=== PATIENT | male | born 1990 | race Caucasian/White ===

== ENCOUNTER 2019-04-28 21:45 | Emergency (ER) | payer OTHER, SELFPAY ==
[2019-04-28] MEDS ORDERED: FENTANYL CITR 100 MCG/2 ML ONE (22:44)
[2019-04-28] MEDS ORDERED: NA CHLORIDE 0.9% 2,000 ML ONE (22:44)
[2019-04-28] MEDS ORDERED: ACETAMINOPHEN 500 MG TAB ONE (22:44)
[2019-04-28] MEDS ORDERED: NA CHLORIDE 0.9% 500 ML ONE (22:45)
[2019-04-28] MEDS ORDERED: ONDANSETRON 4 MG/2 ML VIAL ONE (23:25)
[2019-04-28 23:31] LABS: Protime INR 1.16
[2019-04-28 23:33] LABS: Absolute Lymphocytes (CBC) 0.7 K/uL (0.7-4.9); Basophils % 1.1 % (0-1.3); Hematocrit 41.9 % (39.6-49.0); Lymphocytes % 9.1 % (15.3-44.8); MPV 9.1 fL (7.6-11.3); RBC Red Blood Cell Count 4.61 M/uL (4.33-5.43)
[2019-04-28 23:42] LABS: Albumin 4.3 g/dL (3.4-5.0); Bilirubin Direct 0.1 mg/dL (0-0.2); Bilirubin Total 0.3 mg/dL (0.2-1.0); Potassium 3.8 mmol/L (3.5-5.1)
[2019-04-28 23:42] LABS: Urine Blood NEGATIVE (NEG); Urine Glucose NEGATIVE (NEG); Urine Protein NEGATIVE (NEG); Urine Specific Gravity 1.015 (1.005-1.030); Urine pH 5.5 (5.0-7.0)
--- NOTE | 2019-04-29 02:21 | ER ---
Nurse's Notes [facility] Name: Kwabena Berry Age: 28 yrs Sex: Male : 1990 Arrival Date: 04/28/2019 Time: 21:52 Bed 17 Private MD: Diagnosis: Fever, unspecified;Myalgia Presentation: 04/28 22:04 Presenting complaint: Patient states: left flank pain X1 day. fever at 1800 tonight ak1 101.5 no medications taken. pt denies N/V, denies urinary s/s. Presenting complaint:. Transition of care: patient was not received from another setting of care. Onset of symptoms is unknown. Risk Assessment: Do you want to hurt yourself or someone else? Patient reports no desire to harm self or others. Initial Sepsis Screen: Does the patient meet any 2 criteria? Temp <36.0*C (96.8*F)) or > 38.3*C (100.9*F). Does the patient have a suspected source of infection? Yes:. Care prior to arrival: None. 22:04 Method Of Arrival: Ambulatory ak1 22:04 Acuity: DAINA 3 ak1 Triage Assessment: 22:06 General: Appears in no apparent distress. Behavior is calm, cooperative. ak1 22:09 General: Appears in no apparent distress. uncomfortable, Behavior is calm, cooperative, cc3 appropriate for age. Pain: Complains of pain in left mid back. EENT: No signs and/or symptoms were reported regarding the EENT system. Neuro: Level of Consciousness is awake, alert, obeys commands, Oriented to person, place, time, situation, Appropriate for age. Cardiovascular: Heart tones S1 S2 present Capillary refill < 3 seconds Patient's skin is warm and dry. Rhythm is sinus tachycardia. Respiratory: Airway is patent Respiratory effort is even, unlabored, Respiratory pattern is regular, symmetrical. GI: Abdomen is round non-distended. : No signs and/or symptoms were reported regarding the genitourinary system. Derm: Skin is intact, is healthy with good turgor, Skin is pink, warm \T\ dry. normal. Musculoskeletal: Circulation, motion, and sensation intact. Range of motion: intact in all extremities. Historical: - Allergies: 22:06 diphenhydramine HCl; ak1 - Home Meds: 22:06 None [Active]; ak1 - PMHx: 22:06 None; ak1 - PSHx: 22:06 None; ak1 - Immunization history:: Adult Immunizations up to date. - Social history:: Smoking status: Patient uses tobacco products, smokes one pack cigarettes per day. - Ebola Screening: : No symptoms or risks identified at this time. Screenin:06 Abuse screen: Denies threats or abuse. Denies injuries from another. Nutritional ak1 screening: No deficits noted. Tuberculosis screening: No symptoms or risk factors identified. Fall Risk None identified. Assessment: 22:09 General: see triage assessment. cc3 23:45 Reassessment: Patient appears in no apparent distress at this time. Patient and/or cc3 family updated on plan of care and expected duration. Pain level reassessed. Patient is alert, oriented x 3, equal unlabored respirations, skin warm/dry/pink. Patient taken by termite control technician to their department by wheelchair. 04/29 00:20 Reassessment: Patient appears in no apparent distress at this time. Patient and/or cc3 family updated on plan of care and expected duration. Pain level reassessed. Patient is alert, oriented x 3, equal unlabored respirations, skin warm/dry/pink. Patient came back from CT scan department, awaiting result. 01:45 Reassessment: Patient appears in no apparent distress at this time. Patient and/or cc3 family updated on plan of care and expected duration. Pain level reassessed. Patient is alert, oriented x 3, equal unlabored respirations, skin warm/dry/pink. Repeat lactate taken by geoscience technicianlolis Blanco and sent to laboratory, laboratory staff Susannah lassiter. 02:35 Reassessment: Patient appears in no apparent distress at this time. Patient and/or cc3 family updated on plan of care and expected duration. Pain level reassessed. Patient is alert, oriented x 3, equal unlabored respirations, skin warm/dry/pink. ROSETTA Peña discharged the patient home, no prescription given. IV cannula removed and patient left ER vitally stable and ambulatory. NO valuables left in the patient's room. Patient denies pain at this time. Patient states feeling better. Patient states symptoms have improved. Vital Signs: 04/28 22:04 BP 130 / 80; Pulse 124; Resp 18; Temp 102.(O); Pulse Ox 98% on R/A; Weight 81.65 kg ak1 (R); Height 5 ft. 10 in. (177.80 cm) (R); Pain 10/10; 23:45 BP 114 / 71; Pulse 105; Resp 20; Temp 99.2(O); Pulse Ox 100% on R/A; jb5 04/29 00:30 BP 136 / 65; Pulse 93; Resp 20 S; Pulse Ox 100% on R/A; Pain 0/10; cc3 01:46 BP 114 / 74; Pulse 91; Resp 15 S; Temp 99.2(O); Pulse Ox 99% on R/A; Pain 0/10; cc3 02:15 BP 103 / 76; Pulse 89; Resp 16 S; Pulse Ox 99% on R/A; Pain 0/10; cc3 04/28 22:04 Body Mass Index 25.83 (81.65 kg, 177.80 cm) ak1 ED Course: 04/28 21:52 Patient arrived in ED. cl3 22:05 Triage completed. ak1 22:06 Arm band placed on Patient placed in an exam room, Patient notified of wait time. ak1 22:06 Patient has correct armband on for positive identification. ak1 22:09 Cari Cardona is Primary Nurse. cc3 22:16 Eduard Peña PA is PHCP. jr8 22:16 Meng Romero MD is Attending Physician. jr8 23:05 Inserted saline lock: 20 gauge in right antecubital area, using aseptic technique. cc3 Blood collected. 23:40 Urine Microscopic Only Sent. jb5 23:44 Notified Nurse Practitioner and/or Physician Partner Cco of a critical lab result(s), bb lactate 2.5 Eduard SARGENT notified. 23:52 X-ray completed. Portable x-ray completed in exam room. Patient tolerated procedure kw well. 23:55 Chest Single View XRAY In Process Unspecified. EDMS 04/29 00:49 CT Abd/Pelvis - IV Contrast Only In Process Unspecified. EDMS 02:35 No provider procedures requiring assistance completed. IV discontinued, intact, cc3 bleeding controlled, No redness/swelling at site. Pressure dressing applied. Administered Medications: 04/28 22:40 Drug: Tylenol 1000 mg Route: PO; cc3 23:40 Follow up: Response: No adverse reaction; Temperature is decreased cc3 23:05 Drug: NS 0.9% (30 ml/kg) 30 ml/kg Route: IV; Rate: bolus; Site: right antecubital; cc3 04/29 01:20 Follow up: Response: No adverse reaction; IV Status: Completed infusion; IV Intake: cc3 2449.5ml 04/28 23:10 Drug: fentaNYL (PF) 50 mcg {Note: RASS 0.} Route: IVP; Site: right antecubital; cc3 23:40 Follow up: Response: No adverse reaction; Pain is decreased; RASS: Alert and Calm (0) cc3 23:15 Drug: Zofran 4 mg Route: IVP; Site: right antecubital; cc3 23:40 Follow up: Response: No adverse reaction; Nausea is decreased cc3 04/29 02:20 Drug: TORadol 30 mg Route: IVP; Site: right antecubital; cc3 02:35 Follow up: Response: No adverse reaction; Pain is decreased cc3 Point of Care Testing: Blood Glucose: 04/28 22:50 Blood Glucose: 99 mg/dL; cc3 Ranges: Intake: 04/29 01:20 IV: 2450ml; Total: 2450ml. cc3 Outcome: 02:19 Discharge ordered by MD. savage 02:35 Discharged to home ambulatory, with family. cc3 02:35 Condition: stable 02:35 Discharge instructions given to patient, family, Instructed on discharge instructions, follow up and referral plans. Demonstrated understanding of instructions, follow-up care. 02:40 Patient left the ED. cc3 Signatures: Dispatcher [employer] EDMS Leslie Engel RN RN Brianna Sauceda Josh, PA PA jr8 Almaz Sam RN RN akMarlene Casey jb5 Cari Cardona cc3 Ramona Pugh cl3 Corrections: (The following items were deleted from the chart) 01:50 01:46 BP 114 / 74; Pulse 91bpm; Resp 15bpm; Spontaneous; Pulse Ox 99% RA; Temp 99.2F cc3 Oral; cc3
--- NOTE | 2019-04-29 02:22 | EDPHYS ---
Physician Documentation [facility] Name: Kwabena Berry Age: 28 yrs Sex: Male : 1990 Arrival Date: 04/28/2019 Time: 21:52 Bed 17 Private MD: ED Physician Meng Romero HPI: 04/28 22:31 This 28 yrs old Male presents to ER via Ambulatory with complaints of Fever, jr8 Back Pain. 22:31 The patient reports fever, that was measured at 102 degrees Fahrenheit. Onset: The jr8 symptoms/episode began/occurred 2 day(s) ago. Modifying factors: there are no obvious modifying factors. Associated signs and symptoms: Pertinent positives: backache, Pertinent negatives: abdominal pain, arthralgias, chest pain, chills, cough, diarrhea, headache, hemoptysis, nausea, sinus congestion, sinus drainage, sore throat. Severity of symptoms: At their worst the symptoms were moderate. The patient has not experienced similar symptoms in the past. The patient has not recently seen a physician. Pt reports onset of pain to left mid back area on Sunday while at home. Noticed fever today. Denies any urinary or URI symptoms. Historical: - Allergies: 22:06 diphenhydramine HCl; ak1 - Home Meds: 22:06 None [Active]; ak1 - PMHx: 22:06 None; ak1 - PSHx: 22:06 None; ak1 - Immunization history:: Adult Immunizations up to date. - Social history:: Smoking status: Patient uses tobacco products, smokes one pack cigarettes per day. - Ebola Screening: : No symptoms or risks identified at this time. ROS: 22:31 Constitutional: Negative for fever, chills, and weight loss, Eyes: Negative for injury, jr8 pain, redness, and discharge, ENT: Negative for injury, pain, and discharge, Neck: Negative for injury, pain, and swelling, Cardiovascular: Negative for chest pain, palpitations, and edema, Respiratory: Negative for shortness of breath, cough, wheezing, and pleuritic chest pain, Abdomen/GI: Negative for abdominal pain, nausea, vomiting, diarrhea, and constipation, : Negative for injury, bleeding, discharge, and swelling, MS/Extremity: Negative for injury and deformity, Neuro: Negative for headache, weakness, numbness, tingling, and seizure. 22:31 Back: Positive for pain at rest, pain with movement, of the left mid back. jr8 Exam: 22:31 Constitutional: This is a well developed, well nourished patient who is awake, alert, jr8 and in no acute distress. Head/Face: Normocephalic, atraumatic. Eyes: Pupils equal round and reactive to light, extra-ocular motions intact. Lids and lashes normal. Conjunctiva and sclera are non-icteric and not injected. Cornea within normal limits. Periorbital areas with no swelling, redness, or edema. ENT: Nares patent. No nasal discharge, no septal abnormalities noted. Tympanic membranes are normal and external auditory canals are clear. Oropharynx with no redness, swelling, or masses, exudates, or evidence of obstruction, uvula midline. Mucous membranes moist. Neck: Trachea midline, no thyromegaly or masses palpated, and no cervical lymphadenopathy. Supple, full range of motion without nuchal rigidity, or vertebral point tenderness. No Meningismus. Chest/axilla: Normal chest wall appearance and motion. Nontender with no deformity. No lesions are appreciated. Cardiovascular: Regular rate and rhythm with a normal S1 and S2. No gallops, murmurs, or rubs. Normal PMI, no JVD. No pulse deficits. Respiratory: Lungs have equal breath sounds bilaterally, clear to auscultation and percussion. No rales, rhonchi or wheezes noted. No increased work of breathing, no retractions or nasal flaring. Abdomen/GI: Soft, non-tender, with normal bowel sounds. No distension or tympany. No guarding or rebound. No evidence of tenderness throughout. Back: No spinal tenderness. No costovertebral tenderness. Full range of motion. MS/ Extremity: Pulses equal, no cyanosis. Neurovascular intact. Full, normal range of motion. Vital Signs: 22:04 BP 130 / 80; Pulse 124; Resp 18; Temp 102.(O); Pulse Ox 98% on R/A; Weight 81.65 kg ak1 (R); Height 5 ft. 10 in. (177.80 cm) (R); Pain 10/10; 23:45 BP 114 / 71; Pulse 105; Resp 20; Temp 99.2(O); Pulse Ox 100% on R/A; jb5 04/29 00:30 BP 136 / 65; Pulse 93; Resp 20 S; Pulse Ox 100% on R/A; Pain 0/10; cc3 01:46 BP 114 / 74; Pulse 91; Resp 15 S; Temp 99.2(O); Pulse Ox 99% on R/A; Pain 0/10; cc3 02:15 BP 103 / 76; Pulse 89; Resp 16 S; Pulse Ox 99% on R/A; Pain 0/10; cc3 04/28 22:04 Body Mass Index 25.83 (81.65 kg, 177.80 cm) ak1 MDM: 04/28 22:31 Patient medically screened. jr8 04/29 02:15 Differential diagnosis: viral Infection, bacterial infection, pneumonia UTI, jr8 meningitis, myositis, pyelonephritis, renal stone with obstruction, sepsis, colitis, diverticulitis, cystitis. Data reviewed: vital signs, nurses notes, lab test result(s), radiologic studies, CT scan, plain films. Data interpreted: Pulse oximetry: on room air is 99 %. Interpretation: normal. Counseling: I had a detailed discussion with the patient and/or guardian regarding: the historical points, exam findings, and any diagnostic results supporting the discharge/admit diagnosis, lab results, radiology results, the need for outpatient follow up, a family practitioner, to return to the emergency department if symptoms worsen or persist or if there are any questions or concerns that arise at home. Response to treatment: the patient's symptoms have markedly improved after treatment, patient is well hydrated. ED course: Patient feeling better. Second lactate normal. No other acute findings on lab work, CXR, or CT. Patient has baseline elevation in LFT's which is known to him. No other acute findings on physical exam to explain the fever and left sided back pain. Recommended rest and close f/u with PCP. If other symptoms were to occur or he were to worsen, to come back immediately. Patient good with this plan . 04/28 22:32 Order name: Basic Metabolic Panel; Complete Time: 23:44 jr8 04/28 22:32 Order name: Blood Culture Adult (2) jr8 04/28 22:32 Order name: CBC with Diff; Complete Time: 23:41 jr8 04/28 22:32 Order name: CPK; Complete Time: 23:44 [facility] 04/28 22:32 Order name: Lactate; Complete Time: 23:56 [facility] 04/28 22:32 Order name: LFT's; Complete Time: 23:44 [facility] 04/28 22:32 Order name: Lipase; Complete Time: 23:44 [facility] 04/28 22:32 Order name: Procalcitonin; Complete Time: 00:18 [facility] 04/28 22:32 Order name: Protime (+inr); Complete Time: 23:41 [facility] 04/28 22:32 Order name: Ptt, Activated; Complete Time: 23:41 [facility] 04/28 22:32 Order name: Chest Single View XRAY [facility] 04/28 23:37 Order name: Urine Dipstick--Ancillary (enter results); Complete Time: 23:44 mo 04/29 02:08 Order name: Lactate Sepsis 2 HR Follow-up; Complete Time: 02:15 EDMS 04/28 22:32 Order name: Accucheck; Complete Time: 23:29 [facility] 04/28 22:32 Order name: Cardiac monitoring; Complete Time: 22:59 [facility] 04/28 22:32 Order name: EKG - Nurse/Tech; Complete Time: 23:00 [facility] 04/28 22:32 Order name: IV Saline Lock - Large Bore; Complete Time: 23:30 [facility] 04/28 22:32 Order name: Labs collected and sent; Complete Time: 23:30 [facility] 04/28 22:32 Order name: O2 Per Protocol; Complete Time: 22:38 [facility] 04/28 22:32 Order name: O2 Sat Monitoring; Complete Time: 22:38 [facility] 04/28 22:32 Order name: Urine Dipstick-Ancillary (obtain specimen); Complete Time: 23:47 [facility] 04/28 23:41 Order name: CT Abd/Pelvis - IV Contrast Only [facility] Administered Medications: 04/28 22:40 Drug: Tylenol 1000 mg Route: PO; cc3 23:40 Follow up: Response: No adverse reaction; Temperature is decreased cc3 23:05 Drug: NS 0.9% (30 ml/kg) 30 ml/kg Route: IV; Rate: bolus; Site: right antecubital; cc3 04/29 01:20 Follow up: Response: No adverse reaction; IV Status: Completed infusion; IV Intake: cc3 2449.5ml 04/28 23:10 Drug: fentaNYL (PF) 50 mcg {Note: RASS 0.} Route: IVP; Site: right antecubital; cc3 23:40 Follow up: Response: No adverse reaction; Pain is decreased; RASS: Alert and Calm (0) cc3 23:15 Drug: Zofran 4 mg Route: IVP; Site: right antecubital; cc3 23:40 Follow up: Response: No adverse reaction; Nausea is decreased 3 04/29 02:20 Drug: TORadol 30 mg Route: IVP; Site: right antecubital; cc3 02:35 Follow up: Response: No adverse reaction; Pain is decreased cc3 Point of Care Testing: Blood Glucose: 04/28 22:50 Blood Glucose: 99 mg/dL; cc3 Ranges: Critical Glucose Levels:Adult <50 mg/dl or >400 mg/dl <40 mg/dl or >180 mg/dl Disposition: 04/29 07:51 Co-signature as Attending Physician, Meng Romero MD I agree with the assessment and 4 plan of care. Disposition: 04/29/19 02:19 Discharged to Home. Impression: Fever, unspecified, Myalgia. - Condition is Stable. - Discharge Instructions: Fever, Adult, Muscle Pain, Adult. - Work release form, Medication Reconciliation Form, Thank You Letter, Antibiotic Education, Prescription Opioid Use, Family Work Release form. - Follow up: Private Physician; When: 1 - 2 days; Reason: Recheck today's complaints, Continuance of care, Re-evaluation by your physician. - Problem is new. - Symptoms have improved. - Notes: Continue to Push fluids at home Rest Ibuprofen and Tylenol for pain and fevers Signatures: Dispatcher [employer] EDMS Eduard Peña PA PA jr8 Almaz Sam RN RN [email or web address] Mneg Romero MD MD tw4 Cari Cardona cc3 Corrections: (The following items were deleted from the chart) 02:40 02:19 04/29/2019 02:19 Discharged to Home. Impression: Fever, unspecified; Myalgia. cc3 Condition is Stable. Forms are Medication Reconciliation Form, Thank You Letter, Antibiotic Education, Prescription Opioid Use. Follow up: Private Physician; When: 1 - 2 days; Reason: Recheck today's complaints, Continuance of care, Re-evaluation by your physician. Problem is new. Symptoms have improved. jr8
[2019-04-29] MEDS ORDERED: KETOROLAC 30 MG/ML INJ ONE (02:24)
[2019-04-29 03:10] VITALS: TEMP 99.2
[2019-04-29 03:15] VITALS: BP 114/74; O2SAT 99
--- NOTE | 2019-04-29 08:16 | RAD REPORT ---
EXAM DESCRIPTION: RAD - Chest Single View - 04/28/2019 11:54 pm CLINICAL HISTORY: FEVER Chest pain. COMPARISON: No comparisons FINDINGS: Portable technique limits examination quality. The lungs are grossly clear. The heart is normal in size. No displaced fractures. IMPRESSION: No acute intrathoracic process suspected.
--- NOTE | 2019-04-29 09:49 | RAD REPORT ---
EXAM DESCRIPTION: CT Abdomen and Pelvis With Intravenous Contrast CLINICAL HISTORY: The patient is 28 years old and is Male; left sided back pain; Fever TECHNIQUE: Axial computed tomography images of the abdomen and pelvis with intravenous contrast. S agittal and coronal reformatted images were created and reviewed. This CT exam was performed using one or more of the following dose reduction techniques: automated exposure control, adjustment of t he mA and/or kV according to patient size, and/or use of iterative reconstruction technique. COMPARISON: None. FINDINGS: LUNG BASES: Bibasilar dependent subsegmental atelectasis. No focal consolidation, pleur al effusion or pneumothorax. ABDOMEN: LIVER: Diffuse heterogeneity of the liver parenchyma on arterial phase. No ductal dilatation or re traction. GALLBLADDER AND BILE DUCTS: Prior cholecystectomy. No ductal dilation. PANCREAS: Unremarkable. No mass. No ductal dilation. SPLEEN: Unremarkable. No splenomegaly. ADRENALS: Unremarkable. No mass. KIDNEYS AND URETERS: Unremarkable. No solid mass. No hydronephrosis. STOMACH AND BOWEL: Unremarkable. No obstruction. No mucosal thickening. PELVIS: APPENDIX: The appendix is seen and is within normal limits. BLADDER: Bladder is decompressed. REPRODUCTIVE: Unremarkable as visualized. ABDOMEN and PELVIS: INTRAPERITONEAL SPACE: Unremarkable. No free air. No significant fluid collection. BONES/JOINTS: No acute fracture. No dislocation. SOFT TISSUES: Unremarkable. VASCULATURE: See above. LYMPH NODES: Unremarkable. No enlarged lymph nodes. IMPRESSION: 1. No acute abdominal or pelvic abnormality. 2. Heterogeneity of liver parenchyma on arterial phase most suggestive of transient hepatic attenua tion differences. Electronically signed by: Nick Dubois DO 04/29/2019 12:37 AM CDT Due to temporary technical issues with the PACS/Fluency reporting system, reports are being signed by the in house radiologist as a courtesy to ensure prompt reporting. The interpreting radiologist is f brandonly responsible for the content of the report.
--- NOTE | 2019-04-29 11:34 | EKG ---
Test Date: 2019-04-28 Test Time: 22:55:04 [employer] Manager: LELE MEASUREMENT RESULTS: Intervals: Rate: 107 [place]: 158 QRSD: 82 QT: 292 QTc: 389 [place]: P: 39 [place]: 158 QRS: 62 T: 36 INTERPRETIVE STATEMENTS: Sinus tachycardia Otherwise normal ECG No previous ECG available for comparison Electronically Signed On 04-29-19 11:33:36 CDT by Neeraj Huffman
== END 2019-04-29 02:40 | disposition home or self-care (01) ==
LOC: ER 21:45
DX: M79.10 Myalgia, unspecified site (principal); F17.210 Nicotine dependence, cigarettes, uncomplicated; Z88.8 Allergy status to other drugs, medicaments and biological substances
CPT/HCPCS: 36415; 71045; 74177; 80048; 80076; 81003; 82550; 82962; 83605; 83690; 84145; 85025; 85610; 85730; 87040; 93005; 96361; 96365; 96366; 96374; 96375; 99284; J2405; J3010; J7030; Q9967